=== PATIENT | male | born 1980 | race Caucasian/White ===

== ENCOUNTER → 2024-11-26 | Day surgery (SDC) | payer OTHER ==
[~2024-11-26] MED LIST: DEXAMETHASONE SOD PHOS INJ 4 MG/ML SDV ONE; FENTANYL CITRATE/PF 100MCG/2 ML INJ ONE; HYDROCODONE/APAP 7.5MG-325MG 1 EA TAB ONE; KETOROLAC TROMETHAMINE 30 MG/ML VIAL ONE; LIDOCAINE HCL 2% LOCAL INJ 5 ML SDV VIAL INJ ONE; MIDAZOLAM HCL 2 MG/2 ML VIAL ONE; ONDANSETRON HCL INJ 2MG/ML 2ML 2 MG/ML VIAL ONE; ONE DAILY FOR1 EAC1; PROPOFOL IV EMULSION 10 MG/ML 20 ML VIAL ONE; TESTOSTERONE SHOT
[2024-11-26] MEDS: HYDROCODONE/APAP 7.5MG-325MG 1 EA TAB PO ONE (08:27)
[2024-11-26 08:40] VITALS: BP 134/86; PULSE 72; RESP 15; O2SAT 97
[2024-11-26] MEDS: LACTATED RINGER'S 1,000 ML ONE (10:02)
[2024-11-26] MEDS: CEFAZOLIN SODIUM 2 GM ONE (10:02)
== END | disposition home or self-care (01) ==
LOC: OR 05:57
PROVIDERS: ATTEND Podiatrist Foot & Ankle Surgery
DX: G57.52 Tarsal tunnel syndrome, left lower limb (principal); I83.91 Asymptomatic varicose veins of right lower extremity; M06.9 Rheumatoid arthritis, unspecified; E66.9 Obesity, unspecified; Z01.810 Encounter for preprocedural cardiovascular examination; Z68.35 Body mass index [BMI] 35.0-35.9, adult
CPT/HCPCS: 28035; 93005; J1100; J1885; J2003; J2250; J2405; J2704; J3010; J7121